=== PATIENT | female | born 1940 | race Caucasian/White ===

== ENCOUNTER 2016-08-07 09:14 | Emergency (ER) | payer OTHER ==
[~2016-08-07] VITALS: Ht 162.6 cm; Wt 91.4 kg
[2016-08-07 09:18] VITALS: TEMP 37.1; Ht 162.6 cm; Wt 91.4 kg
--- NOTE | 2016-08-07 09:32 | EMERGENCY ROOM VISIT NOTE ---
History First contact with patient: 09:30 Chief Complaint: REFERRED BY DOCTOR Stated Complaint: POSSIBLE BLOOD CLOT History of Present Illness The patient is a 76 year old female who presents to the Emergency Room with complaints of possible saddle pulmonary embolus. The patient states that she was scheduled to have abdominal hernia surgery. She states that she had an outpatient EKG done which was changed compared to previous. Therefore, she underwent echocardiogram. She was having the echo today when they noticed what they believe is a saddle pulmonary embolus. The patient was referred to the emergency department. She denies any true chest pain or trouble breathing. She denies any fevers. She denies any abdominal pain, nausea or vomiting. The patient's states she appears pale. She was hypoxic on initial triage. Review of Systems A 10 system review of systems was completed with positives and pertinent negatives listed in the HPI. Past Medical/Surgical History Medical Problems: (1) Hypercholesterolemia (2) Hypertension (3) Hypothyroidism (4) Osteoporosis (5) TIA (transient ischemic attack) Social History Smoking Status: Never Smoker Housing Status: lives with family Current/Historical Medications Scheduled Ascorbic Acid (Vitamin C), 500 MG PO BID Aspirin-Dipyridamole 25MG/200MG (Aggrenox 200MG/25MG), 1 CAP PO BID Ezetimibe (Zetia), 10 MG PO DAILY Fenofibrate (Tricor), 48 MG PO DAILY Ferrous Sulfate (Kp Ferrous Sulfate), 1 TAB PO TID Hydrochlorothiazide (Hydrochlorothiazide), 25 MG PO DAILY Levothyroxine Sodium (Synthroid), 112 MCG PO DAILY Metoprolol Tartrate (Lopressor) (Lopressor), 25 MG PO BID Omeprazole (Prilosec), 20 MG PO DAILY Piroxicam (Piroxicam), 1 CAP PO DAILY Sertraline (Zoloft), 25 MG PO DAILY Simvastatin (Zocor), 20 MG PO HS Allergies Coded Allergies: Adhesives (Unverified Allergy, Intermediate, RASH, 08/07/16) Ranitidine (Unverified Adverse Reaction, Intermediate, PALPITATIONS, ) Physical Exam Vital Signs Date Time Temp Pulse Resp B/P Pulse Ox O2 Delivery O2 Flow Rate FiO2 08/07/16 16:12 67 18 174/91 98 08/07/16 14:33 64 156/84 94 Nasal Cannula 2.0 08/07/16 12:30 65 18 156/84 98 Nasal Cannula 3.0 08/07/16 11:53 83 Room Air 08/07/16 11:53 67 16 187/92 96 Nasal Cannula 3.0 08/07/16 11:07 88 Room Air 08/07/16 10:29 59 19 151/75 95 Nasal Cannula 4.0 08/07/16 10:14 63 20 128/77 96 Nasal Cannula 4.0 08/07/16 09:59 72 20 197/89 94 Nasal Cannula 4.0 08/07/16 09:44 95 Nasal Cannula 4.0 08/07/16 09:36 73 08/07/16 09:18 37.1 72 20 201/81 89 Room Air Physical Exam VITALS: Vitals are noted on the nurse's note and reviewed by myself. Vital signs stable. GENERAL: This is a 76-year-old female, in no acute distress, nondiaphoretic, well-developed well-nourished. SKIN: The skin was pale without rashes, erythema, edema, or bruising. There is no tenting of the skin. Capillary reflex less than 2 seconds. HEAD: Normocephalic atraumatic. EARS: The external ears are normal in appearance. EYES: Pupils equal round and reactive to light and accommodation. Conjunctivae without injection, sclerae without icterus. Extraocular movements intact. NOSE: Patent, turbinates without inflammation or discharge. MOUTH: Mucous membranes moist. Tonsils are not enlarged. Pharynx without erythema or exudate. Uvula midline. Airway patent. Tongue does not deviate. NECK: Supple without nuchal rigidity. No lymphadenopathy. No thyromegaly. Cervical spine is nontender. No JVD. The patient does have a loud carotid bruit on the right. HEART: Regular rate and rhythm without murmurs gallops or rubs. LUNGS: Diminished on the right. No retractions or accessory muscle use. ABDOMEN: Positive bowel sounds x 4. Soft, nontender, without masses or organomegaly. MUSCULOSKELETAL: No muscle atrophy, erythema, or edema noted. Full range of motion in all extremities. Normal gait. Strength 5/5 throughout. NEURO: Patient was alert and oriented to person place and time. No focal neurological deficits. Medical Decision & Procedures ER Provider Diagnostic Interpretation: [~ rep ct add3]] CHEST ONE VIEW PORTABLE CLINICAL HISTORY: hypoxia dyspnea COMPARISON STUDY: None FINDINGS: Mild cardia megaly. Mild tortuosity thoracic aorta. Lungs are clear. Diaphragms smooth. IMPRESSION: Mild cardiomegaly. [~ rep ct add3]] CHEST CTA for PULMONARY ARTERIES CT DOSE: 451.90 mGy.cm HISTORY: Hypoxia. TECHNIQUE: Multiaxial CT images of the chest were performed following the intravenous administration of contrast to evaluate the pulmonary arteries. Maximal intensity projection images were also obtained. COMPARISON STUDY: None. FINDINGS: Moderate anterior wedging within the L1 vertebral body. This is likely old. No pleural or pericardial effusions. The heart is mildly enlarged. High-grade stenosis with possible occlusion of the proximal left subclavian artery. Remaining portions of the left subclavian artery are patent. Therefore, this raises the possibility of a left-sided subclavian steal phenomenon. Normal caliber thoracic ureter with no evidence for dissection. Dilated main pulmonary artery measuring 4.9 cm in diameter. This is consistent with pulmonary arterial hypertension. No filling defects within the pulmonary arteries to suggest pulmonary embolus. The central airways are patent. No pleural effusions. No pneumothorax. Bibasilar linear densities favor subsegmental atelectasis. The lungs are otherwise clear. Limited views of the upper abdomen demonstrate a normal liver and adrenal glands. There is a 1 cm hypodense lesion within the spleen. This is indeterminate. No mediastinal or hilar lymphadenopathy. IMPRESSION: 1. No evidence for pulmonary embolus. 2. Dilated main pulmonary artery consistent with pulmonary arterial hypertension. 3. Mild cardiomegaly. 4. High-grade stenosis versus occlusion of the proximal left subclavian artery. Therefore, this raises the possibility of a left subclavian steal. Laboratory Results 08/07/16 09:30 Red Blood Count 4.54, Mean Corpuscular Volume 102.4, Mean Corpuscular Hemoglobin 33.3, Mean Corpuscular Hemoglobin Concent 32.5, Mean Platelet Volume 11.3, Neutrophils (%) (Auto) 68.6, Lymphocytes (%) (Auto) 18.0, Monocytes (%) ( Auto) 9.3, Eosinophils (%) (Auto) 3.5, Basophils (%) (Auto) 0.4, Neutrophils # ( Auto) 3.71, Lymphocytes # (Auto) 0.97, Monocytes # (Auto) 0.50, Eosinophils # ( Auto) 0.19, Basophils # (Auto) 0.02 08/07/16 09:30 Test 08/07/16 09:30 08/07/16 11:44 White Blood Count 5.40 K/uL (4.8-10.8) Red Blood Count 4.54 M/uL (4.2-5.4) Hemoglobin 15.1 g/dL (12.0-16.0) Hematocrit 46.5 % (37-47) Mean Corpuscular Volume 102.4 fL (80-100) Mean Corpuscular Hemoglobin 33.3 pg (25-34) Mean Corpuscular Hemoglobin Concent 32.5 g/dl (32-36) Platelet Count 193 K/uL (130-400) Mean Platelet Volume 11.3 fL (7.4-10.4) Neutrophils (%) (Auto) 68.6 % Lymphocytes (%) (Auto) 18.0 % Monocytes (%) (Auto) 9.3 % Eosinophils (%) (Auto) 3.5 % Basophils (%) (Auto) 0.4 % Neutrophils # (Auto) 3.71 K/uL (1.4-6.5) Lymphocytes # (Auto) 0.97 K/uL (1.2-3.4) Monocytes # (Auto) 0.50 K/uL (0.11-0.59) Eosinophils # (Auto) 0.19 K/uL (0-0.5) Basophils # (Auto) 0.02 K/uL (0-0.2) Bedside Hemoglobin 16.0 g/dl (12.0-16.0) Bedside Hematocrit 47 % (37-47) RDW Standard Deviation 48.9 fL (36.4-46.3) RDW Coefficient of Variation 13.0 % (11.5-14.5) Immature Granulocyte % (Auto) 0.2 % Immature Granulocyte # (Auto) 0.01 K/uL (0.00-0.02) Prothrombin Time 10.3 SECONDS (9.0-12.0) Prothromb Time International Ratio 1.0 (0.9-1.1) Activated Partial Thromboplast Time 26.5 SECONDS (21.0-31.0) Partial Thromboplastin Ratio 1.0 Bedside Sodium 142 mEq/L (135-144) Bedside Potassium 3.5 mEq/L (3.3-5.0) Bedside Chloride 95 mEq/L (101-112) Bedside Total CO2 35 mEq/l (24-31) Anion Gap 17.0 mmol/L (16-25) Bedside Blood Urea Nitrogen 26 mg/dl (7-18) Bedside Creatinine 0.9 mg/dl (0.6-1.3) Est Creatinine Clear Calc Drug Dose 54.9 ml/min Estimated GFR () 66.2 Estimated GFR (Non- 57.1 BUN/Creatinine Ratio 24.7 (10-20) Bedside Glucose (other) 104 mg/dl (70-99) Calcium Level 9.0 mg/dl (8.5-10.1) Bedside Ionized Calcium (Debbi) 1.19 mmol/l (1.12-1.32) Total Bilirubin 0.3 mg/dl (0.2-1) Aspartate Amino Transf (AST/SGOT) 13 U/L (15-37) Alanine Aminotransferase (ALT/SGPT) 17 U/L (12-78) Alkaline Phosphatase 52 U/L (45-117) Total Creatine Kinase 44 U/L (26-192) Creatine Kinase MB 1.1 ng/ml (0.5-3.6) Creatine Kinase MB Ratio 2.5 (0-3.0) Troponin I < 0.015 ng/ml (0-0.045) Pro-B-Type Natriuretic Peptide 158 pg/ml (0-900) Total Protein 7.3 gm/dl (6.4-8.2) Albumin 4.0 gm/dl (3.4-5.0) Globulin 3.3 gm/dl (2.5-4.0) Albumin/Globulin Ratio 1.2 (0.9-2) Arterial Blood pH 7.45 (7.35-7.45) Arterial Blood Partial Pressure CO2 52 mmHg (35-46) Arterial Blood Partial Pressure O2 53 mm/Hg (80-95) Arterial Blood HCO3 35 mmol/L (19-24) Arterial Blood Oxygen Saturation 86.9 % (90-95) Arterial Blood Base Excess 9.8 mEq/L (-9-1.8) Arterial Blood Gas Delivery ROOM AIR Shaheen Test POS (POS) Procedure The patient was monitored on a phototypesetting equipment monitor. She maintained a normal sinus rhythm without ectopy The patient was initially hypoxic on room air with an oxygen saturation of 83%. When she was placed on oxygen via nasal cannula at 4 L/m, her oxygen saturation was 98% The patient was removed from oxygen and oxygen saturation was assessed in both her right and left hands and nail hebrew had been removed and she dropped as low as 76% on room air. She was not symptomatic during this time. She was again placed on oxygen after arterial blood gas was obtained ECG Indication: SOB/dyspnea Rate (beats per minute): 68 Rhythm: normal sinus Findings: no acute ischemic change Comparison ECG Date: no prior available ED Course The patient was seen and examined. Previous visits were reviewed. The patient does not have a fever or leukocytosis. She is not anemic. She does not have any significant electrolyte abnormality. Troponin is not elevated. BN P was 158. INR was 1.0. Arterial blood gas reveals a normal pH of 7.45. Her oxygen saturation on blood gas was 86.9. Chest x-ray revealed cardiomegaly CTA of the chest revealed possible subclavian steal syndrome and pulmonary arterial hypertension The patient did not have any pain and was largely asymptomatic. She did require oxygen for hypoxia as well as 76% on room air. I discussed the above findings with Dr. Niño. He felt the patient could follow-up in the office with him. She has an appointment on Thursday. I discussed the case with Dr. Pierre. He evaluated the patient in the emergency department. She will be started on home oxygen per Dr. Pierre. She may have pickwickian syndrome. She should follow-up with pulmonology next week. She should return with any worsening symptoms. The patient was advised that the above findings and recommended follow-up appointment. The patient was also seen and examined by who agrees with the assessment and treatment plan. Medical Decision DIFFERENTIAL DIAGNOSIS: Aortic dissection, myocarditis, pericarditis, cervical disc disease, costochondritis, herpes zoster, rib fracture, pleuritis, pneumonia , pulmonary embolus, tension pneumothorax, anxiety disorder, somatoform disorder , choledocholithiasis, status, esophagitis, esophageal spasm, esophageal reflux , esophageal rupture, pancreatitis, peptic ulcer disease, cardiac ischemia, ST elevation SC, acute coronary syndrome, arrhythmia, coronary artery vasospasm. vavular heart disease, coronary artery disease, among others. Impression Primary Impression: Hypoxia Additional Impressions: Subclavian steal syndrome Pulmonary arterial hypertension Departure Information Dispostion Home / Self-Care Condition GOOD Referrals Leah Kaiser,Jf.ZahraNMaryPMary (PCP) Saroj Niño D.O. Walter Pierre MD Patient Instructions My [facility] Additional Instructions oxygen as per Dr. Pierre Follow up with Dr. Niño on Thursday Follow up with Dr. Pierre's office next week Return with worsening symptoms Problem Qualifiers
[2016-08-07] MEDS ORDERED: OPTIRAY 320 IV PRN (09:45)
[2016-08-07 09:55] LABS: ISTAT CREATININE 0.9 mg/dl (0.6-1.3); ISTAT IONIZED CALCIUM 1.19 mmol/l (1.12-1.32)
--- NOTE | 2016-08-07 10:01 | DIAGNOSTIC IMAGING REPORT ---
CHEST ONE VIEW PORTABLE CLINICAL HISTORY: hypoxia dyspnea COMPARISON STUDY: None FINDINGS: Mild cardia megaly. Mild tortuosity thoracic aorta. Lungs are clear. Diaphragms smooth. IMPRESSION: Mild cardiomegaly. Electronically signed by: Asif Chaudhary M.D. 08/07/2016 10:00 AM Dictated Date/Time: 08/07/2016 9:59 AM
[2016-08-07 10:05] LABS: BASO % 0.4 %; BASO ABS # 0.02 K/uL (0-0.2); COMPLETE YES; EOS % 3.5 %; HEMATOCRIT 46.5 % (37-47); IG% 0.2 %; LYMPH ABS # 0.97 K/uL (1.2-3.4); MEAN CELL VOLUME 102.4 fL (80-100); MEAN CORPUSCULAR HEMOGLOBIN 33.3 pg (25-34); MEAN CORPUSCULAR HGB CONC 32.5 g/dl (32-36); MEAN PLATELET VOLUME 11.3 fL (7.4-10.4); MONO % 9.3 %; NEUT % 68.6 %; PLATELET COUNT 193 K/uL (130-400); RED BLOOD COUNT 4.54 M/uL (4.2-5.4)
--- NOTE | 2016-08-07 10:08 | DIAGNOSTIC IMAGING REPORT ---
CHEST CTA for PULMONARY ARTERIES CT DOSE: 451.90 mGy.cm HISTORY: Hypoxia. TECHNIQUE: Multiaxial CT images of the chest were performed following the intravenous administration of contrast to evaluate the pulmonary arteries. Maximal intensity projection images were also obtained. COMPARISON STUDY: None. FINDINGS: Moderate anterior wedging within the L1 vertebral body. This is likely old. No pleural or pericardial effusions. The heart is mildly enlarged. High-grade stenosis with possible occlusion of the proximal left subclavian artery. Remaining portions of the left subclavian artery are patent. Therefore, this raises the possibility of a left-sided subclavian steal phenomenon. Normal caliber thoracic ureter with no evidence for dissection. Dilated main pulmonary artery measuring 4.9 cm in diameter. This is consistent with pulmonary arterial hypertension. No filling defects within the pulmonary arteries to suggest pulmonary embolus. The central airways are patent. No pleural effusions. No pneumothorax. Bibasilar linear densities favor subsegmental atelectasis. The lungs are otherwise clear. Limited views of the upper abdomen demonstrate a normal liver and adrenal glands. There is a 1 cm hypodense lesion within the spleen. This is indeterminate. No mediastinal or hilar lymphadenopathy. IMPRESSION: 1. No evidence for pulmonary embolus. 2. Dilated main pulmonary artery consistent with pulmonary arterial hypertension. 3. Mild cardiomegaly. 4. High-grade stenosis versus occlusion of the proximal left subclavian artery. Therefore, this raises the possibility of a left subclavian steal. Electronically signed by: Jose Stubbs M.D. 08/07/2016 10:06 AM Dictated Date/Time: 08/07/2016 9:57 AM
[2016-08-07 10:17] LABS: PROTHROMBIN TIME (PATIENT) 10.3 SECONDS (9.0-12.0)
[2016-08-07 10:30] LABS: ALT/SGPT 17 U/L (12-78); AST/SGOT 13 U/L (15-37); BLOOD UREA NITROGEN 24 mg/dl (7-18); BUN/CREATININE RATIO 24.7 (10-20); CARBON DIOXIDE 36 mmol/L (21-32); CHLORIDE 101 mmol/L (98-107); CREATININE 0.97 mg/dl (0.60-1.20); GLUCOSE 98 mg/dl (70-99); POTASSIUM 3.4 mmol/L (3.5-5.1); SODIUM 143 mmol/L (136-145)
[2016-08-07 10:42] LABS: ALB/GLOB RATIO 1.2 (0.9-2); ALKALINE PHOSPHATASE 52 U/L (45-117); CKMB/CK RATIO 2.5 (0-3.0)
[2016-08-07] MEDS ORDERED: EZET10TA63 PO (10:43)
[2016-08-07] MEDS ORDERED: SERT25TA PO (10:43)
[2016-08-07] MEDS ORDERED: FERR1TAB13 PO (10:43)
[2016-08-07] MEDS ORDERED: PIRO-104 PO (10:43)
[2016-08-07] MEDS ORDERED: LEVO112T2 PO (10:43)
[2016-08-07] MEDS ORDERED: HYDR25TA5 PO (10:43)
[2016-08-07] MEDS ORDERED: FENO48TA9 PO (10:43)
[2016-08-07] MEDS ORDERED: AGG PO (10:43)
[2016-08-07] MEDS ORDERED: ASCO500T3 PO (10:43)
[2016-08-07] MEDS ORDERED: METO25TA56 PO (10:43)
[2016-08-07] MEDS ORDERED: PRLSR20 PO (10:43)
[2016-08-07] MEDS ORDERED: SIMV20TA2 PO (10:43)
[2016-08-07 11:07] VITALS: O2SAT 88
[2016-08-07 12:04] LABS: ARTERIAL BLD GAS O2 SATURATION 86.9 % (90-95); ARTERIAL BLOOD GAS BASE EXCESS 9.8 mEq/L (-9-1.8); ARTERIAL BLOOD GAS HCO3 35 mmol/L (19-24); ARTERIAL BLOOD GAS PO2 53 mm/Hg (80-95); ARTERIAL BLOOD GAS pH 7.45 (7.35-7.45)
[2016-08-07 12:05] LABS: ALLEN TEST POS (POS); O2 ADMINISTRATION ROOM AIR
--- NOTE | 2016-08-07 14:23 | Pulmonary Consultation ---
History General Date of Service: Aug 07, 2016. Stated Complaint: Possible Blood Clot HPI The patient is a 76 year old female who presents to [facility] with complaints of Possible Blood Clot. The patient's primary care provider is Leah Kaiser C.R.N.P.. Consultation requested secondary to possible pulmonary hypertension and notable hypoxemia: 76-year-old female recently being worked up for ventral hernia repair with notable abnormal EKG. Patient was sent for pre-operative cardiac echo and sings saddle embolism vs. pulmonary hypertension where seen and the patient was sent to the ED for further work-up. I the ED the patient was asymptolatic but her SaO2 on RA was noted to be 88%. She was then placed on 3Lnc and her SaO2 jonny to 97%. An AB.45/52/87/[address]ogram showing no signs of pulmonary embolisms but did show signs of pulmonary hypertension. With this the palmar surface was counseled. During my conversation with the patient she's never showed any signs of increased work of breathing nor did she complain of shortness of breath. She does state in confirmed by her a progressive dyspnea on exertion over the last 2 years with chronic fatigue. She also notes poor sleep habits and her notes she has had witnessed episodes of apnea. Should also note the patient has been experiencing chest tightness with her associated shortness of breath over the last 6-8 months. At this time she denies: Shortness of breath, cardiac chest pain, pleurisy, fever, chills, productive cough or weight loss. Historian: patient, EMS Review of Systems Constitutional: reports: no symptoms Eyes: reports: no symptoms ENT: reports: no symptoms Cardiovascular: reports: as stated in HPI Respiratory: reports: as stated in HPI Gastrointestinal: reports: no symptoms Genitourinary - Female: reports: no symptoms Musculoskeletal: reports: no symptoms Integumentary: reports: no symptoms Neurologic: reports: no symptoms Psychiatric: reports: no symptoms Endocrine: no symptoms Hematologic / Lymphatic: no symptoms Allergic / Immunologic: no symptoms Past Medical History Past Medical History: Bunion deformity Past Surgical History: Bunionectomy Family History COPD Social History Tobacco: Secondhand exposure for 31 years Status: Occupation: Retired Alcohol: No history of abuse Smoking Status: Never Smoker Allergies Coded Allergies: Adhesives (Unverified Allergy, Intermediate, RASH, 08/07/16) Ranitidine (Unverified Adverse Reaction, Intermediate, PALPITATIONS, ) Current Medications Reported Home Medications Medications Dose Route/Sig Max Daily Dose Days Date Category Hydrochlorothiazide 25 Mg Tab 25 Mg PO DAILY 08/07/16 Reported Lopressor (Metoprolol Tartrate) 25 Mg Tab 25 Mg PO BID 08/07/16 Reported Zoloft (Sertraline HCl) 25 Mg Tab 25 Mg PO DAILY 08/07/16 Reported Prilosec (Omeprazole) 20 Mg Capcr 20 Mg PO DAILY 08/07/16 Reported Zocor (Simvastatin) 20 Mg Tab 20 Mg PO HS 08/07/16 Reported Zetia (Ezetimibe) 10 Mg Tab 10 Mg PO DAILY 08/07/16 Reported Vitamin C (Ascorbic Acid) 500 Mg Tab 500 Mg PO BID 08/07/16 Reported Piroxicam 20 Mg Cap 1 Cap PO DAILY 30 08/07/16 Reported Kp Ferrous Sulfate (Ferrous Sulfate) 325 Mg Tab 1 Tab PO TID 30 08/07/16 Reported Tricor (Fenofibrate) 48 Mg Tab 48 Mg PO DAILY 08/07/16 Reported Synthroid (Levothyroxine Sodium) 112 Mcg Tab 112 Mcg PO DAILY 08/07/16 Reported Aggrenox 200MG/25MG (Aspirin-Dipyridamole 25MG/200MG) 1 Cap Cap 1 Cap PO BID 08/07/16 Reported Physical Physical Exam Vital Signs: Date Time Temp Pulse Resp B/P Pulse Ox O2 Delivery O2 Flow Rate FiO2 08/07/16 12:30 65 18 156/84 98 Nasal Cannula 3.0 08/07/16 11:53 83 Room Air 08/07/16 11:53 67 16 187/92 96 Nasal Cannula 3.0 08/07/16 11:07 88 Room Air 08/07/16 10:29 59 19 151/75 95 Nasal Cannula 4.0 08/07/16 10:14 63 20 128/77 96 Nasal Cannula 4.0 08/07/16 09:59 72 20 197/89 94 Nasal Cannula 4.0 08/07/16 09:44 95 Nasal Cannula 4.0 08/07/16 09:36 73 08/07/16 09:18 37.1 72 20 201/81 89 Room Air General Appearance: WELL-APPEARING, WD/WN, NO APPARENT DISTRESS Head: NORMOCEPHALIC, ATRAUMATIC Eyes: PERRLA, NO DISCHARGE, EOMI, SCLERAE NORMAL, CONJUNCTIVAE NORMAL ENT: NORMAL EAR EXAM, NORMAL NASAL EXAM, NORMAL MOUTH EXAM, NORMAL THROAT EXAM , NORMAL DENTAL EXAM, NORMAL SINUS EXAM Neck: NORMAL RANGE OF MOTION, NO TENDERNESS, TRACHEA MIDLINE, NO STRIDOR, SUPPLE Cardiovasular: REGULAR RATE/RHYTHM, NORMAL S1S2, NO M/G/R, NO MURMUR, NO GALLOP Abdomen: NON TENDER, NORMAL BOWEL SOUNDS, NO REBOUND, NO MASSES, NO GUARDING, NO ORGANOMEGALY, NORMAL RECTAL EXAM, other (ventral hernia reducible) Genitourinary - Female: EXTERNAL GENITALIA NORMAL Back: NORMAL INSPECTION, NO MIDLINE TENDERNESS, NO CVA TENDERNESS, NO PARAVERTEBRAL TTP Upper Extremities: NO EDEMA, NO DEFORMITY, NORMAL ROM Lower Extremities: NO EDEMA, NO DEFORMITY, NORMAL ROM Pulses: carotid (R) (1+), carotid (L) (1+), posterior tibial (R), posterior tibial (L) (2+) Neuro: ALERT, ORIENTED x 3, NORMAL MOTOR EXAM, NORMAL SENSATION, NORMAL CEREBELLAR EXAM Reflexes: biceps (R) (2+), bicpes (L) (2+), achilles (R) (2+), achilles (L) (2+ ) Babinski Testing: right (downgoing), left (downgoing) Psychiatric: NORMAL AFFECT, NO SUICIDAL IDEATION, CONTRACTS FOR SAFETY Diagnostics Labs Results Past 24 Hours Test 08/07/16 09:29 08/07/16 09:30 08/07/16 11:44 Range/Units Creatine Kinase MB Ratio 2.5 0-3.0 White Blood Count 5.40 4.8-10.8 K/uL Red Blood Count 4.54 4.2-5.4 M/uL Hemoglobin 15.1 12.0-16.0 g/dL Hematocrit 46.5 37-47 % Mean Corpuscular Volume 102.4 80-100 fL Mean Corpuscular Hemoglobin 33.3 25-34 pg Mean Corpuscular Hemoglobin Concent 32.5 32-36 g/dl Platelet Count 193 130-400 K/uL Mean Platelet Volume 11.3 7.4-10.4 fL Neutrophils (%) (Auto) 68.6 % Lymphocytes (%) (Auto) 18.0 % Monocytes (%) (Auto) 9.3 % Eosinophils (%) (Auto) 3.5 % Basophils (%) (Auto) 0.4 % Neutrophils # (Auto) 3.71 1.4-6.5 K/uL Lymphocytes # (Auto) 0.97 1.2-3.4 K/uL Monocytes # (Auto) 0.50 0.11-0.59 K/uL Eosinophils # (Auto) 0.19 0-0.5 K/uL Basophils # (Auto) 0.02 0-0.2 K/uL Bedside Hemoglobin 16.0 12.0-16.0 g/dl Bedside Hematocrit 47 37-47 % RDW Standard Deviation 48.9 36.4-46.3 fL RDW Coefficient of Variation 13.0 11.5-14.5 % Immature Granulocyte % (Auto) 0.2 % Immature Granulocyte # (Auto) 0.01 0.00-0.02 K/uL Prothrombin Time 10.3 9.0-12.0 SECONDS Prothromb Time International Ratio 1.0 0.9-1.1 Activated Partial Thromboplast Time 26.5 21.0-31.0 SECONDS Partial Thromboplastin Ratio 1.0 Bedside Sodium 142 135-144 mEq/L Sodium Level 143 136-145 mmol/L Bedside Potassium 3.5 3.3-5.0 mEq/L Potassium Level 3.4 3.5-5.1 mmol/L Bedside Chloride 95 101-112 mEq/L Chloride Level 101 98-107 mmol/L Carbon Dioxide Level 36 21-32 mmol/L Bedside Total CO2 35 24-31 mEq/l Anion Gap 17.0 16-25 mmol/L Bedside Blood Urea Nitrogen 26 7-18 mg/dl Blood Urea Nitrogen 24 7-18 mg/dl Creatinine 0.97 0.60-1.20 mg/dl Bedside Creatinine 0.9 0.6-1.3 mg/dl Est Creatinine Clear Calc Drug Dose 54.9 ml/min Estimated GFR () 66.2 Estimated GFR (Non- 57.1 BUN/Creatinine Ratio 24.7 10-20 Bedside Glucose (other) 104 70-99 mg/dl Random Glucose 98 70-99 mg/dl Calcium Level 9.0 8.5-10.1 mg/dl Bedside Ionized Calcium (Debbi) 1.19 1.12-1.32 mmol/l Total Bilirubin 0.3 0.2-1 mg/dl Aspartate Amino Transf (AST/SGOT) 13 15-37 U/L Alanine Aminotransferase (ALT/SGPT) 17 12-78 U/L Alkaline Phosphatase 52 45-117 U/L Total Creatine Kinase 44 26-192 U/L Creatine Kinase MB 1.1 0.5-3.6 ng/ml Troponin I < 0.015 0-0.045 ng/ml Pro-B-Type Natriuretic Peptide 158 0-900 pg/ml Total Protein 7.3 6.4-8.2 gm/dl Albumin 4.0 3.4-5.0 gm/dl Globulin 3.3 2.5-4.0 gm/dl Albumin/Globulin Ratio 1.2 0.9-2 Arterial Blood pH 7.45 7.35-7.45 Arterial Blood Partial Pressure CO2 52 35-46 mmHg Arterial Blood Partial Pressure O2 53 80-95 mm/Hg Arterial Blood HCO3 35 19-24 mmol/L Arterial Blood Oxygen Saturation 86.9 90-95 % Arterial Blood Base Excess 9.8 -9-1.8 mEq/L Arterial Blood Gas Delivery ROOM AIR Shaheen Test POS POS Diagnostic Radiology CT angiogram 08/07/16 No evidence for pulmonary embolism Enlarged pulmonary artery to aorta ratio at 5/3 Mild cardiomegaly High-grade stenosis versus occlusion of the proximal left subclavian artery is the possibility left subclavian steal syndrome Radiology Interpretation: CXR NORMAL EKG Echocardiogram 08/07/2016: Within normal limits Impression Assessment and Plan 76-year-old female with signs of pulmonary hypertension on CT angios as well as echocardiogram: #1 pulmonary hypertension: Exact etiology for patient's pulmonary hypertension is more likely croup 2 and group 3 combined. At this time going to workup the patient is an outpatient with pulmonary function tests, sent for right heart catheterization (Dr. Pako Linda) and polysomnogram. #2 hypoxia: Hypoxia most likely chronic in nature possibly secondary to obesity hypoventilation with compliant pulmonary hypertension/cor pulmonale. Patient is able to maintain sats greater than 90% on 1 L at rest and 3 L with exertion. We are currently setting the patient up for home oxygen: 1 L at rest and 3 L with exertion and sleep. #3 sleep apnea/obesity hypoventilation: Patient does have signs of elevated right ventricular strain as well as witnessed apneic episodes by her . At this time she will require a PSG for evaluation.
[2016-08-07 16:12] VITALS: BP 174/91; PULSE 67; O2SAT 98
[2016-08-13] MEDS ORDERED: ASPI81TA28 PO (07:26)
[2016-08-13] MEDS ORDERED: B-CO1CAP5 PO (07:26)
[2016-08-13] MEDS ORDERED: MULT-506 PO (07:26)
[2016-08-13] MEDS ORDERED: [UNRECOGNIZED DRUG - OTHER] PO (07:26)
[2016-08-13] MEDS ORDERED: LORA-388 PO (07:26)
[2016-08-20] MEDS ORDERED: ISOS30TA3 PO (14:22)
[2017-01-15] MEDS ORDERED: METO50TA16 PO (10:02)
[2017-01-15] MEDS ORDERED: LISI-789 PO (10:02)
[2017-01-15] MEDS ORDERED: NTRGSL/4 SL (10:03)
== END 2016-08-07 16:00 | disposition home or self-care (01) ==
LOC: C.EDB 09:16 → C.EDA 16:00
DX: R09.02 Hypoxemia (principal); G45.8 Other transient cerebral ischemic attacks and related syndromes; I27.2 Other secondary pulmonary hypertension; I10 Essential (primary) hypertension; E78.00 Pure hypercholesterolemia, unspecified; M81.0 Age-related osteoporosis without current pathological fracture; E03.9 Hypothyroidism, unspecified; E66.2 Morbid (severe) obesity with alveolar hypoventilation; Z86.73 Personal history of transient ischemic attack (TIA), and cerebral infarction without residual deficits; Z98.890 Other specified postprocedural states; Z82.5 Family history of asthma and other chronic lower respiratory diseases; Z79.02 Long term (current) use of antithrombotics/antiplatelets; Z79.82 Long term (current) use of aspirin; Z79.899 Other long term (current) drug therapy; R09.89 Other specified symptoms and signs involving the circulatory and respiratory systems

== ENCOUNTER → 2016-08-13 | Day surgery (SDC) | payer OTHER ==
[~2016-08-13] VITALS: Ht 162.6 cm; Wt 90.5 kg
[~2016-08-13] MED LIST: AGG PO; ASCO500T3 PO; ASPI81TA28 PO; B-CO1CAP5 PO; EZET10TA63 PO; FENO48TA9 PO; FERR1TAB13 PO; HYDR25TA5 PO; ISOS30TA3 PO; LEVO112T2 PO; LISI-789 PO; LORA-388 PO; METO25TA56 PO; METO50TA16 PO; MULT-506 PO; NTRGSL/4 SL; PIRO-104 PO; PRLSR20 PO; SERT25TA PO; SIMV20TA2 PO; [UNRECOGNIZED DRUG - OTHER] PO
[2016-08-13 07:13] VITALS: BP 146/90; PULSE 61; TEMP 36.1; O2SAT 96; Ht 162.6 cm; Wt 90.5 kg
== END | disposition home or self-care (01) ==
LOC: C.CATH 06:48
PROVIDERS: ATTEND Internal Medicine Cardiovascular Disease
DX: R07.82 Intercostal pain (principal); Z53.09 Procedure and treatment not carried out because of other contraindication

== ENCOUNTER → 2016-08-19 | Day surgery (SDC) | payer OTHER ==
[2016-08-19] VITALS (9 sets, daily range): BP systolic 81–140; BP diastolic 40–88; PULSE 62–67; TEMP 36.7; O2SAT 95–99; Ht 162.6 cm; Wt 88.0 kg
[~2016-08-19] VITALS: Ht 162.6 cm; Wt 88.0 kg
[~2016-08-19] MED LIST changes: -ASCO500T3 PO; -FERR1TAB13 PO; +LIDOCAINE HCL 2% 2 ML VIAL (20MG/ML) ONE; +PROPOFOL IV EMULSION 10 MG/ML 20 ML VIAL IV ONE
--- NOTE | 2016-08-19 07:59 | History & Physical Bridge Note ---
H&P Re-Evaluation Bridge Note: I have examined the patient, reviewed the History & Physical and in the interval since the performance of the History & Physical I have noted the following changes of clinical significance: No changes noted
--- NOTE | 2016-08-19 09:01 | Discharge Instructions ---
Discharge Instructions Procedure Procedure Date: Aug 19, 2016. Reason for Visit: Chest Pain- Dr. Niño To Do. Discharge Discharge Date: Aug 19, 2016. Last Recorded Wt (Kilograms): 88 Anesthesia Post Anesthesia Instructions: If you have had General Anesthesia or IV Sedation: * Do not drive today. * Resume driving when surgeon permits. * Do not make important decisions or sign legal documents today. * Call surgeon for: 1. Temperature elevations greater than 101 degrees F. 2. Uncontrollable pain. 3. Excessive bleeding. 4. Persistent nausea and vomiting. 5. Medication intolerance (nausea, vomiting or rash). * For nausea and vomiting use only clear liquids such as: tea, soda, bouillon until nausea subsides, then gradually increase diet as tolerated. * If you have any concerns or questions, call your surgeon's office. If physician is unavailable and it is an emergency, call 911 or go to the nearest emergency room. Instructions Allergies: Coded Allergies: Adhesives (Unverified Allergy, Intermediate, RASH, 08/07/16) Ranitidine (Unverified Adverse Reaction, Intermediate, PALPITATIONS, ) Provider Instructions ACTIVITY RECOMMENDATIONS: Resume activities as tolerated with no limitations unless specified. __ No lifting over __ pounds for 24 hours. __ Do not engage in vigorous exercise, sexual activity, or sports for 24 hours. __ Do not drive or operate any motorized equipment for 24 hours. __ You may return to work/school tomorrow. __ Nothing to eat or drink until gag reflex returns. __ No HOT or WARM liquids for __ hours. __ Avoid "scratchy" foods such as potato chips or pretzels for 24 hours following procedure. SPECIAL CARE: If you experience coughing up or vomiting of blood, contact Dr Albert Follow Up Follow-up with: Dr Niño as scheduled. 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 Your Doctors Instructions noted above were prepared by provider Suhail Albert. Patient Signature Section: Patient Instructions Signature Page Christina Choudhury Patient (or Guardian) Signature/Date: I have read and understand the instructions given to me by my caregivers. Caregiver/RN/Doctor Signature/Date: The above-named patient and/or guardian has received patient instructions on this date. + Original Patient Signature Page (only) stays with chart. Please make copy for patient.
--- NOTE | 2016-08-19 09:52 | Anesthesiology Progress Note ---
Anesthesia Post Op Note Date & Time Aug 19, 2016 at 09:52 Vital Signs Pain Intensity: 0 Vital Signs Past 12 Hours Date Time Temp Pulse Resp B/P Pulse Ox O2 Delivery O2 Flow Rate FiO2 08/19/16 09:30 63 16 118/70 98 Nasal Cannula 1 120/72 08/19/16 09:15 62 16 114/75 98 Nasal Cannula 1 08/19/16 09:00 63 16 118/75 98 Nasal Cannula 1 08/19/16 08:45 62 16 114/76 98 Nasal Cannula 1 08/19/16 08:32 62 16 112/62 98 Nasal Cannula 1 08/19/16 08:12 62 16 102/66 96 Nasal Cannula 1 08/19/16 08:02 61 16 95/70 96 Nasal Cannula 1 08/19/16 08:00 62 16 92/61 95 Nasal Cannula 4 08/19/16 07:55 63 16 114/72 98 Nasal Cannula 4 08/19/16 07:50 63 16 101/64 96 Nasal Cannula 4 08/19/16 07:45 63 16 100/64 96 Nasal Cannula 4 08/19/16 07:40 62 16 81/40 98 Nasal Cannula 4 08/19/16 07:35 67 16 82/70 98 Nasal Cannula 4 08/19/16 07:30 67 16 140/88 98 Nasal Cannula 4 08/19/16 07:00 36.7 62 16 127/88 99 Room Air Notes Mental Status: alert / awake / arousable, participated in evaluation Pt Amnestic to Procedure: Yes Nausea / Vomiting: adequately controlled Pain: adequately controlled Airway Patency, RR, SpO2: stable & adequate BP & HR: stable & adequate Hydration State: stable & adequate Anesthetic Complications: no major complications apparent
--- NOTE | 2016-08-27 12:31 | TEE ---
*NOTICE TO RECEIVING LIBERTARIAN AGENCY This information is strictly Confidential and protected under [place] law. [place] law prohibits you from making any further disclosure of this information unless further disclosure is expressly permitted by the written consent of the person to whom it pertains or is authorized by law. A general authorization for the release of medical or other information is not sufficient for this purpose. Hospital accepts no responsibility if the information is made available to any other person, INCLUDING THE PATIENT. 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 * There is mild concentric left ventricular hypertrophy. * The left ventricular wall motion is normal. * Ejection Fraction = 60-65%. * The left atrium is mildly dilated. * No left atrial mass or thrombus visualized. * The right atrium is mildly dilated. * A prominent eustachian ridge is noted. * Moderate pulmonary artery dilation. * There is mild mitral regurgitation. * There is mild tricuspid regurgitation. * Right ventricular systolic pressure is elevated at 40-50mmHg. Procedure Details * ZARI Probe #1 utilized for procedure. * The study was performed in Cardiac Catheterization Lab. * Time out was conducted by the physician, nurse, and sewer and drain technician with positive identification of patient and procedure. * Informed consent for Transesophageal Echocardiogram was obtained prior to the procedure. * An intravenous line was placed. A topical anesthetic agent was used for oropharangeal anesthesia. A bite block was inserted. * Sedation performed by the anesthesia department. * The patient's vital signs, including blood pressure, heart rate, pulse oximetry and cardiac rhythm were monitored throughout the procedure . * A multifrequency, multiplane transesopheageal echocardiographic endoscope was inserted and manipulated in the standard fashion to achieve multiplane views. * The transesophageal probe was passed without difficulty. * Contrast injection with agitated saline was performed. * The usual views were obtained; basal, mid-esophageal, transgastric and aortic views. * The patient tolerated the procedure well without evidence of orophangeal or esophageal trauma. * Probe insertion at 0735; probe out 0755. * A 2D transesophageal echocardiogram was performed. * A 2D transesophageal echocardiogram with color flow Doppler was performed. * A 2D transesophageal echocardiogram with Doppler and color flow Doppler was performed. Left Ventricle * The left ventricle is normal in size. * There is mild concentric left ventricular hypertrophy. * Ejection Fraction = 60-65%. * Left ventricular systolic function is normal. * The left ventricular wall motion is normal. Right Ventricle * The right ventricular cavity size is normal (basal dimension <4.2 cm in right ventricular apical 4-chamber view). * The right ventricular systolic function is normal. Atria * The left atrium is mildly dilated. * No left atrial mass or thrombus visualized. * The right atrium is mildly dilated. * A prominent eustachian valve is noted. * The interatrial septum is intact with no evidence for an atrial septal defect. * Injection of contrast documented no interatrial shunt. Mitral Valve * There is mild mitral annular calcification. * There is mild thickening of the posterior mitral valve leaflet * There is mild mitral regurgitation. Tricuspid Valve * The tricuspid valve anatomy is normal. * There is no tricuspid stenosis. * There is mild tricuspid regurgitation. * Right ventricular systolic pressure is elevated at 40-50mmHg. Aortic Valve * Aortic valve sclerosis mild, without significant aortic valvular stenosis. * The aortic valve is trileaflet. * Aortic stenosis is absent. * No aortic regurgitation is present. Pulmonic Valve * Pulmonic stenosis is absent. * The pulmonic valve is not well seen, but is grossly normal. * Trace pulmonic valvular regurgitation. Great Vessels * The aortic root is normal size. * Mild atherosclerotic plaque(s) in the ascending aorta. * Mild atherosclerotic plaque(s) in the descending aorta. * Moderate pulmonary artery dilation. Pericardium * There is no pericardial effusion. Right Ventricle * The right ventricular wall motion is normal.
== END | disposition home or self-care (01) ==
LOC: C.CATH 06:18
PROVIDERS: ATTEND Internal Medicine Cardiovascular Disease
DX: R07.9 Chest pain, unspecified (principal); I70.0 Atherosclerosis of aorta; I36.1 Nonrheumatic tricuspid (valve) insufficiency; I12.9 Hypertensive chronic kidney disease with stage 1 through stage 4 chronic kidney disease, or unspecified chronic kidney disease; E03.9 Hypothyroidism, unspecified; N18.3 Chronic kidney disease, stage 3 (moderate)

== ENCOUNTER → 2016-08-20 | Day surgery (SDC) | payer OTHER ==
[~2016-08-20] VITALS: Ht 162.6 cm; Wt 88.0 kg
[~2016-08-20] MED LIST changes: +ACETAMINOPHEN 325 MG TAB PO PRN; +ATROPINE SULFATE 0.1 MG/ML 10 ML SYR ONE; +ATROPINE SULFATE 0.1 MG/ML 5ML SYR IV PRN; +DIAZEPAM 5MG TAB ONE; -LIDOCAINE HCL 2% 2 ML VIAL (20MG/ML) ONE; +NITROGLYCERIN 0.4 MG SL PER TAB CHARGE SL PRN; -PROPOFOL IV EMULSION 10 MG/ML 20 ML VIAL IV ONE; +SODIUM CHLORIDE 0.9% 1000ML 1,000 ML IV SCH; +SODIUM CHLORIDE 0.9% 1000ML 250 ML IV PRN
[2016-08-20 07:35] VITALS: Ht 162.6 cm; Wt 88.0 kg
[2016-08-20 07:40] VITALS: BP 174/73; PULSE 64; TEMP 36.7; O2SAT 98
[2016-08-20 10:20] LABS: ISTAT ARTERIAL BLOOD GAS HCO3 35 meq/L (19-24); ISTAT ARTERIAL BLOOD GAS PCO2 63 mmHg (35-46); ISTAT ARTERIAL BLOOD GAS PO2 < 32 mmHg (80-95); ISTAT ARTERIAL BLOOD GAS pH 7.35 (7.35-7.45); ISTAT CARBON DIOXIDE 36 mEq/l (24-31)
[2016-08-20 10:20] LABS: ISTAT ARTERIAL BLOOD GAS HCO3 33 meq/L (19-24); ISTAT ARTERIAL BLOOD GAS PCO2 59 mmHg (35-46); ISTAT ARTERIAL BLOOD GAS PO2 39 mmHg (80-95); ISTAT ARTERIAL BLOOD GAS pH 7.36 (7.35-7.45); ISTAT CARBON DIOXIDE 35 mEq/l (24-31)
--- NOTE | 2016-08-20 12:14 | [facility] Post Operative Brief Note ---
Preliminary Procedure Note Procedure Date Aug 20, 2016. Pre-Procedure Diagnosis Angina, Cardiothoracic Symptom AUC Score 7 Post-Procedure Diagnosis Severe CAD Procedure(s) Performed Coronary Angiography, Left Heart Cath, Right Heart Cath, LV Angiography Regional Climate Change Analyst Dr. 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
--- NOTE | 2016-08-20 14:24 | Discharge Instructions ---
Discharge Instructions Procedure Procedure Date: Aug 20, 2016. Reason for Visit: Chest Pain * To Do*. Discharge Discharge Date: Aug 20, 2016. Last Recorded Wt (Kilograms): 88 Anesthesia Post Anesthesia Instructions: If you have had General Anesthesia or IV Sedation: * Do not drive today. * Resume driving when surgeon permits. * Do not make important decisions or sign legal documents today. * Call surgeon for: 1. Temperature elevations greater than 101 degrees F. 2. Uncontrollable pain. 3. Excessive bleeding. 4. Persistent nausea and vomiting. 5. Medication intolerance (nausea, vomiting or rash). * For nausea and vomiting use only clear liquids such as: tea, soda, bouillon until nausea subsides, then gradually increase diet as tolerated. * If you have any concerns or questions, call your surgeon's office. If physician is unavailable and it is an emergency, call 911 or go to the nearest emergency room. Instructions Activity Recommendations: limitations as noted below Recommended Home Diet: resume previous diet Allergies: Coded Allergies: Adhesives (Unverified Allergy, Intermediate, RASH, 08/07/16) Ranitidine (Unverified Adverse Reaction, Intermediate, PALPITATIONS, ) Provider Instructions ACTIVITY RECOMMENDATIONS: It is common to feel weak and fatigue for a few days. * Do not drive or operate any motorized equipment for the next three days. * Limit stair usage (2 or 3 trips a day only) for the next three days. * Do not lift anything heavier than 10 pounds for the next three days. * Do not engage in vigorous exercise or any sports for the next five days. * You may shower the day after your procedure, but do not immerse the area for three days. Cleanse the site gently with soap and water. SPECIAL CARE INSTRUCTIONS: * You may replace the pressure dressing or band-aid the morning after the procedure. * After your procedure, it is normal to have a small bruise or small lump at the site. Examine your site daily for any change in the bruise or lump, redness, swelling, drainage or numbness. Notify your doctor if any change. BLEEDING: * If there is a small amount of bleeding at the site, lie down and apply firm pressure with a clean cloth for ten minutes. When the bleeding stops, lie quietly keeping the procedure limb straight for six hours. Notify your doctor as soon as possible. * If the bleeding does not stop after ten minutes or if there is a large amount of bleeding or spurting, call 911 immediately. Continue to lie down and hold firm pressure until help arrives. SKIN IRRITATION: * You may experience some redness and/or swelling in the area where radiation was administered. If any skin irritation occurs, please contact your family physician. FOLLOW UP VISIT: Keep any scheduled doctor appointments. Follow Up Follow-up with: Dr Niño as scheduled Dr Lan[facility] Recommendations: Call your doctor if: * Temperature above 101 degrees * Pain not relieved by pain medicine ordered * There is increased drainage or redness from any incision * You have any unanswered questions or concerns. Your Doctors Instructions noted above were prepared by provider Suhail Albert. Patient Signature Section: Patient Instructions Signature Page Christina Choudhury Patient (or Guardian) Signature/Date: I have read and understand the instructions given to me by my caregivers. Caregiver/RN/Doctor Signature/Date: The above-named patient and/or guardian has received patient instructions on this date. + Original Patient Signature Page (only) stays with chart. Please make copy for patient.
[2016-08-20 15:00] VITALS: BP 160/90; PULSE 76; O2SAT 95
--- NOTE | 2016-08-20 15:28 | CARDIAC CATH REPORT ---
DATE OF PROCEDURE: 08/20/2016. PROCEDURE: Right and left heart catheterization, coronary and LV angiography by Dr. Albert. INDICATIONS: Pulmonary hypertension, exertional angina, chest discomfort. BRIEF CARDIAC HISTORY: The patient is a 76-year-old female with complex history of hypertension, hyperlipidemia, remote history of TIA who was recently being evaluated preoperatively prior to planned ventral hernia repair. Echocardiogram demonstrated dilated pulmonary arteries. CT scan of the chest revealed no evidence of thromboemboli. The patient was noted to have chronic hypoxia at rest and was begun on oxygen as part of clinical course. Historically patient had been describing exertional dyspnea and chest pressure class 2-3 symptoms without prior documented heart disease or angina. She has had no symptoms of congestive heart failure. ZARI revealed no evidence of intracardiac shunt. In light of findings and complaints, she was referred for diagnostic cardiac catheterization. ACCESS: Right femoral artery, right femoral vein. CATHETERS: A 5-Greenlandic arterial sheath, 7 [place]ic venous sheath, 5-Green[place]ic straight pigtail, 5-Green[place]ic JL4, 5 [place]ic JL5, 5-Green[place]ic 3DRC, 5 [place]ic multipurpose, 5 Green[place]ic AR2, 7-Green[place]ic Hardin-Valentina catheter. CONTRAST: Nonionic x186 mL. IV FLUIDS: 125 mL. MEDICATIONS: The patient received local infiltration at access sites with 1% lidocaine. Post-procedure during sheath removal, the patient received sublingual nitroglycerin x2 for pressure management and chest tightness as well as 0.25 mg IV atropine for transient vagal maneuvers secondary to pressure in the groin with otherwise good tolerance. Prior to procedure, the patient received anxiolytics with Benadryl 25 mg and Valium 5 mg p.o. No conscious sedation was administered. Start time of the case was 9:49, end case was 10:50, radiation exposure was 17.1 minutes of fluoroscopy, milligrays 3,192, DAP score 32531. RESULTS: CORONARY ANGIOGRAPHY: Right dominant coronary anatomy is noted LEFT MAIN: Left main is long and bifurcates to give rise to left anterior descending and left circumflex. Left main is heavily calcified with diffuse disease throughout its narrowings of 40-50%. LEFT ANTERIOR DESCENDING: Left anterior descending is type 3 in distribution with heavy calcification in its proximal third. It gives rise to a modest first diagonal opposite a large septal branch and then courses giving rise to additional small septal and diagonal branch in its mid portion to the apex. Within the left anterior descending, there is diffuse calcification and disease in its proximal third. There is a long area of 50% in its proximal portion, culminating in a 70% narrowing just proximal to the first diagonal and septal branch. Beyond the first diagonal and septal branch, there is an area of diffuse disease with 80% narrowing proximal to a large area of post-stenotic dilatation aneurysmal. The mid and apical segments of the left anterior descending are of moderately large caliber without obstruction. LEFT CIRCUMFLEX: The left circumflex is large but nondominant and gives rise to a large obtuse marginal and then courses along the AV groove giving rise to 2 posterolateral branches. There is also noted diffuse disease in the proximal portion of the left circumflex with 70-80% narrowing proximal to an area of post-stenotic dilatation early in its proximal portion. There is diffuse disease in the vessel prior to its bifurcation into the AV groove and obtuse marginal with disease extending into the obtuse marginal of modest severity. The posterolateral segment has a focal area of 60% prior to any other area of post-stenotic dilatation. Obtuse marginal itself is large in caliber and bifurcates prior to its termination. RAMUS INTERMEDIUS: Absent. RIGHT CORONARY ARTERY: The right coronary artery is dominant in distribution. 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 It gives rise to a very large conus branch with Kugel's collateral to the distal right coronary artery. The mid portion of the vessel is diffusely diseased along the area of 99% subtotal stenosis. It then gives rise to a right ventricular branch and an early takeoff posterior descending artery and along the AV groove tracking into 3 small posterior ventricular branches. As noted within the right coronaries there is diffuse disease within its mid portion of 90% or greater. There is collateralization from the conus branch to the distal right coronary artery. The posterior descending artery is of moderately large caliber without indwelling obstruction. LEFT VENTRICULAR ANGIOGRAPHY: The left ventricle was normal to hyperdynamic, EF 65%. There is no mitral insufficiency. There is mild aortic root dilatation. HEMODYNAMICS: Initial right heart pressures revealed a mean right atrial pressure of 6, RV pressure 42/6, mean PA pressure of 42/16 with a mean of 36. O2 saturation performed revealed a right atrial saturation of 51%, PA saturation of 54%, right femoral artery saturation 69% on room air. Cardiac output by thermal dilution was 6.2 liters per minute and Ricky equation 4.2 liters per minute. There is no transaortic valve gradient transmitral valve gradient on simultaneous recordings. Simultaneous recording on oxygen demonstrated decline in mean pulmonary artery pressure from 36 to 24. LV pressure was 160/3 with an LVEDP 11 and pulmonary capillary wedge pressure of 11 on simultaneous recordings. There was no V-wave. There is no mitral valve gradient. There is no transaortic valve gradient. On the right and left heart pullback. There is no evidence of restrictive or constrictive phenomena. Repeat oxygen saturations and arterial blood gas done on 3 liters nasal cannula with patient supine at the end of the case revealed a pH of 7.36, pCO2 of 59, pO2 of 69. FINAL IMPRESSIONS: 1. Resting hypoxia with mild to moderate pulmonary hypertension with oxygen responsive reduction in mean pulmonary artery pressure. 2. Normal left ventricular systolic function with normal left end diastolic pressures and pulmonary capillary wedge pressures, EF 60%. 3. No significant mitral insufficiency, aortic stenosis or mitral stenosis. 4. Severe 3-vessel coronary artery disease with heavy calcification in the proximal vessels. RECOMMENDATIONS: The patient will be continued to be treated with oxygen as prescribed for likely hypoventilation induced pulmonary hypertension. Risk factor reduction will be continued with hypertension and lipids reduced. Patient will be referred for surgical evaluation given severe 3-vessel disease to consider surgical coronary revascularization. Prescription provided for Imdur and sublingual nitroglycerin and an appointment scheduled. SLY
[2016-08-20 15:45] LABS: ISTAT ARTERIAL BLOOD GAS HCO3 34 meq/L (19-24); ISTAT ARTERIAL BLOOD GAS PCO2 62 mmHg (35-46); ISTAT ARTERIAL BLOOD GAS PO2 < 32 mmHg (80-95); ISTAT ARTERIAL BLOOD GAS pH 7.34 (7.35-7.45); ISTAT CARBON DIOXIDE 35 mEq/l (24-31)
[2016-08-20 15:45] LABS: ISTAT ARTERIAL BLOOD GAS HCO3 32 meq/L (19-24); ISTAT ARTERIAL BLOOD GAS PCO2 63 mmHg (35-46); ISTAT ARTERIAL BLOOD GAS PO2 76 mmHg (80-95); ISTAT ARTERIAL BLOOD GAS pH 7.31 (7.35-7.45); ISTAT CARBON DIOXIDE 34 mEq/l (24-31)
== END | disposition home or self-care (01) ==
LOC: C.CATH 07:02
PROVIDERS: ATTEND Internal Medicine Cardiovascular Disease
DX: I25.119 Atherosclerotic heart disease of native coronary artery with unspecified angina pectoris (principal); I27.2 Other secondary pulmonary hypertension; E78.5 Hyperlipidemia, unspecified; I10 Essential (primary) hypertension; Z86.73 Personal history of transient ischemic attack (TIA), and cerebral infarction without residual deficits